=== PATIENT | male | born 1950 | race Caucasian/White ===

== ENCOUNTER 2017-09-18 18:45 | Emergency (ER) | payer MEDICARE, OTHER ==
[~2017-09-18] VITALS: Ht 195.6 cm; Wt 108.0 kg
[2017-09-18 18:54] VITALS: BP 141/74; PULSE 100; RESP 16; TEMP 97.5; O2SAT 97
--- NOTE | 2017-09-18 19:11 | PD ---
HPI Chief Complaint: Cold / Flu Symptoms Time Seen by Provider: 19:03 Travel History International Travel<30 days: No Contact w/Intl Traveler<30days: No Traveled to known affect area: No History of Present Illness HPI The patient is a 67-year-old male that complains of a cough, possible fever and sharp pleuritic chest discomfort along with nausea, vomiting and diarrhea for 2 days. The nausea is gone and the vomiting was yesterday but not today along with the diarrhea has resolved. He never took his temperature so he doesn't know if he truly had a fever. The cough is productive of yellowish-green sputum. He does not smoke. He has had chills. PFSH Social History Tobacco Use: No Allergies-Medications (Allergen,Severity, Reaction): Coded Allergies: naproxen (Verified Allergy, Unknown, Dizziness, 09/18/17) Reported Meds & Prescriptions Reported Meds & Active Scripts Active Reported Lipitor (Atorvastatin Calcium) 10 Mg Tab 10 Mg PO HS Henny-D 24 Hour Allergy (Fexofenadine-Pseudoephedrine ER 24 HR) 180-240 Laura 1 Tab PO DAILY Aspirin 81 Mg Chew 81 Mg CHEW DAILY Lopressor (Metoprolol Tartrate) 50 Mg Tab 25 Mg PO BID Gabapentin 600 Mg Tab 600 Mg PO BID Review of Systems Except as stated in HPI: all other systems reviewed are Neg Physical Exam Narrative GENERAL: The patient is alert, oriented 3 in no respiratory distress. His heart rate is 100 but the rest of his vital signs are normal. SKIN: Focused skin assessment warm/dry. HEAD: Atraumatic. Normocephalic. EYES: Pupils equal and round. No scleral icterus. No injection or drainage. ENT: No nasal bleeding or discharge. Mucous membranes pink and moist. NECK: Trachea midline. No JVD. CARDIOVASCULAR: Regular rate and rhythm. No murmur appreciated. RESPIRATORY: No accessory muscle use. A few widely scattered rhonchi are heard on the right.. Breath sounds equal bilaterally. GASTROINTESTINAL: Abdomen soft, non-tender, nondistended. Hepatic and splenic margins not palpable. MUSCULOSKELETAL: No obvious deformities. No clubbing. No cyanosis. No edema. NEUROLOGICAL: Awake and alert. No obvious cranial nerve deficits. Motor grossly within normal limits. Normal speech. PSYCHIATRIC: Appropriate mood and affect; insight and judgment normal. Data Data Last Documented VS Vital Signs Date Time Temp Pulse Resp B/P (MAP) Pulse Ox O2 Delivery O2 Flow Rate FiO2 09/18/17 19:24 Room Air 09/18/17 18:54 97.5 100 16 141/74 (96) 97 Orders Orders Comprehensive Metabolic Panel (09/18/17 19:11) Influenzae A/B Antigen (09/18/17 19:11) Chest, Pa & Lat (09/18/17 19:11) Sodium Chloride 0.9% Flush (Ns Flush) (09/18/17 19:15) Complete Blood Count With Diff (09/18/17 19:19) Labs Laboratory Tests Test 09/18/17 19:35 White Blood Count 7.2 TH/MM3 Red Blood Count 5.02 MIL/MM3 Hemoglobin 14.5 GM/DL Hematocrit 44.7 % Mean Corpuscular Volume 89.1 FL Mean Corpuscular Hemoglobin 28.9 PG Mean Corpuscular Hemoglobin Concent 32.4 % Red Cell Distribution Width 13.1 % Platelet Count 164 TH/MM3 Mean Platelet Volume 8.7 FL Neutrophils (%) (Auto) 64.1 % Lymphocytes (%) (Auto) 24.0 % Monocytes (%) (Auto) 8.7 % Eosinophils (%) (Auto) 3.0 % Basophils (%) (Auto) 0.2 % Neutrophils # (Auto) 4.7 TH/MM3 Lymphocytes # (Auto) 1.7 TH/MM3 Monocytes # (Auto) 0.6 TH/MM3 Eosinophils # (Auto) 0.2 TH/MM3 Basophils # (Auto) 0.0 TH/MM3 CBC Comment DIFF FINAL Differential Comment Blood Urea Nitrogen 22 MG/DL Creatinine 1.10 MG/DL Random Glucose 101 MG/DL Total Protein 7.8 GM/DL Albumin 3.1 GM/DL Calcium Level 8.0 MG/DL Alkaline Phosphatase 121 U/L Aspartate Amino Transf (AST/SGOT) 32 U/L Alanine Aminotransferase (ALT/SGPT) 44 U/L Total Bilirubin 0.7 MG/DL Sodium Level 139 MEQ/L Potassium Level 3.9 MEQ/L Chloride Level 106 MEQ/L Carbon Dioxide Level 27.5 MEQ/L Anion Gap 6 MEQ/L Estimat Glomerular Filtration Rate 67 ML/MIN MDM Medical Decision Making Medical Screen Exam Complete: Yes Emergency Medical Condition: Yes Medical Record Reviewed: Yes Interpretation(s) The complete metabolic profile shows a BUN of 22, GFR of 67 and alkaline phosphatase of 121 and albumen of 3.1 but is otherwise normal. The CBC is normal. The influenza A/B antigen is negative for flu a and flu B antigen. The chest x-ray shows no acute cardiopulmonary disease. Differential Diagnosis Pneumonia, flu syndrome, nonspecific viral syndrome, viral upper respiratory infection, bronchitis, ACS-unlikely Narrative Course The patient's chest pain is sharp, pleuritic and brought on by coughing. This does not appear to be his cardiac pain. There is no evidence of pneumonia on the chest x-ray and a flu test is negative. This appears to be a viral upper respiratory infectionbronchitis Diagnosis Primary Impression: Bronchitis Additional Instructions: As we discussed, rest, increase liquids and [id number] Tylenol and Motrin for the pain/fever. Follow-up with your primary care physician when you get back to [place]. If worse, return for reevaluation in the emergency department. Med/Other Pt SpecificInfo: Med Stopped Disposition: 01 DISCHARGE HOME Condition: Stable Nilson Friend MD Sep 18, 2017 19:11
[2017-09-18] MEDS ORDERED: SODIUM CHLORIDE 0.9% FLUSH 10 ML FLUSH IVF PRN (19:15)
[2017-09-18] MEDS ORDERED: FEXO1TAB97 PO (19:23)
[2017-09-18] MEDS ORDERED: GABA600T PO (19:23)
[2017-09-18] MEDS ORDERED: ASPI-516 CHEW (19:23)
[2017-09-18] MEDS ORDERED: LIPI10TA PO (19:23)
[2017-09-18] MEDS ORDERED: METO-309 PO (19:23)
[2017-09-18 19:47] LABS: AUTOMATED NEUTROPHIL # 4.7 TH/MM3 (1.8-7.7); BASOPHIL % 0.2 % (0.0-2.0); EOSINOPHIL # 0.2 TH/MM3 (0-0.4); HEMATOCRIT 44.7 % (39.0-51.0); HEMOGLOBIN 14.5 GM/DL (13.0-17.0); LYMPHOCYTE # 1.7 TH/MM3 (1.0-4.8); MEAN CELL VOLUME 89.1 FL (80.0-100.0); MEAN CORPUSCULAR HEMOGLOBIN 28.9 PG (27.0-34.0); MEAN CORPUSCULAR HGB CONC 32.4 % (32.0-36.0); MEAN PLATELET VOLUME 8.7 FL (7.0-11.0); MONO % 8.7 % (0.0-8.0); MONOCYTE # 0.6 TH/MM3 (0-0.9); NEUT % 64.1 % (16.0-70.0); PLATELET COUNT 164 TH/MM3 (150-450); RED BLOOD COUNT 5.02 MIL/MM3 (4.50-5.90); RED CELL DISTRIBUTION WIDTH 13.1 % (11.6-17.2); WHITE BLOOD COUNT 7.2 TH/MM3 (4.0-11.0)
--- NOTE | 2017-09-18 19:54 | RADRPT ---
EXAM DATE/TIME: 09/18/2017 19:15 [facility] COMPARISON: No previous studies available for comparison. INDICATIONS : Nausea, vomiting, diarrhea, coughing. MEDICAL HISTORY : Hypertension. SURGICAL HISTORY : Coronary artery stent. ENCOUNTER: Initial ACUITY: 2 days PAIN SCORE: 0/10 LOCATION: Bilateral chest FINDINGS: The lungs are clear without infiltrate, nodule, or mass. There is no appreciable pleural effusion fo r technique. Heart and mediastinum are unremarkable. CONCLUSION: No acute cardiopulmonary disease. Marco Booker MD on September 18, 2017 at 19:52 Board Certified Radiologist. This report was verified electronically.
[2017-09-18 20:11] LABS: CHLORIDE 106 MEQ/L (98-107); SODIUM (NA) 139 MEQ/L (136-145)
[2017-09-18 20:15] LABS: ALBUMIN 3.1 GM/DL (3.4-5.0); BICARBONATE 27.5 MEQ/L (21.0-32.0); BLOOD UREA NITROGEN 22 MG/DL (7-18); GLUCOSE,RANDOM 101 MG/DL (74-106)
[2017-09-18 20:18] LABS: ALT (GPT) 44 U/L (12-78); AST (GOT) 32 U/L (15-37); GLOMERULAR FILTRATION RATE 67 ML/MIN (>89)
[2017-09-18 20:19] LABS: TOTAL BILIRUBIN ADULT 0.7 MG/DL (0.2-1.0); TOTAL PROTEIN 7.8 GM/DL (6.4-8.2)
[2017-09-18 20:21] LABS: ALKALINE PHOSPHATASE 121 U/L (45-117)
[2017-09-18 20:47] VITALS: BP 116/85
== END 2017-09-18 21:10 | disposition home or self-care (01) ==
LOC: PHED 18:45
DX: J40 Bronchitis, not specified as acute or chronic (principal); Z88.6 Allergy status to analgesic agent; Z79.899 Other long term (current) drug therapy; Z79.82 Long term (current) use of aspirin
CPT/HCPCS: 71020; 80053; 85025; 87804; 99284